=== PATIENT | female | born 1980 | race Caucasian/White ===

== ENCOUNTER 2021-09-06 20:50 | Day surgery (SDC) | payer OTHER ==
[2021-09-06 21:02] VITALS: BMI 28.6
[2021-09-06] MEDS ORDERED: ONDANSETRON 4 MG/2 ML VIAL IVPB ONE (21:17)
[2021-09-06] MEDS ORDERED: LACTATED RINGERS SOLUTION 1000 ML INFUS.BAG IV ONE (21:17)
[2021-09-06] MEDS ORDERED: FAMOTIDINE 20 MG/50 ML IVPB 20 MG/50 ML MG IVPB ONE ×2 (21:18→21:38)
[2021-09-06] MEDS ORDERED: ACETAMINOPHEN 1000 MG/100 ML BAG IVPB ONE (21:24)
[2021-09-06] MEDS ORDERED: ACETAMINOPHEN INJECTION 100 ML IVPB ONE (21:28)
[2021-09-06] MEDS ORDERED: ONDANSETRON 4 MG/2 ML VIAL ONE (21:28)
[2021-09-06 21:45] LABS: BASO % 0.5 % (0-2.0); EOS % 0.4 % (0-4.5); HEMATOCRIT 36.6 % (32.4-45.2); HEMOGLOBIN 12.2 GM/dL (10.7-15.3); LYMPH % 9.8 % (8-40); MCH 27.5 pg (25.7-33.7); MCHC 33.4 g/dl (32.0-36.0); MEAN CELL VOLUME 82.1 fl (80-96); MEAN PLT VOLUME 8.7 fl (7.5-11.1); MONO % 6.2 % (3.8-10.2); NEUT % 83.1 % (42.8-82.8); PLATELET COUNT 230 10^3/uL (134-434); RBC 4.45 M/mm3 (3.60-5.2); RDW 16.4 % (11.6-15.6); WHITE BLOOD COUNT 13.5 K/mm3 (4.0-10.0)
[2021-09-06 21:51] LABS: INR 1.11 (0.83-1.09); PROTHROMBIN TIME (PATIENT) 12.8 SEC (9.7-13.0)
[2021-09-06 22:08] LABS: CHLORIDE 107 mmol/L (98-107); SODIUM 141 mmol/L (136-145)
[2021-09-06 22:11] LABS: CALCIUM 9.1 mg/dL (8.5-10.1)
[2021-09-06 22:12] LABS: ALBUMIN 3.8 g/dl (3.4-5.0); ANION GAP 8 MMOL/L (8-16); BLOOD UREA NITROGEN 7.2 mg/dL (7-18); CO2 25 mmol/L (21-32); GLUCOSE,RANDOM 107 mg/dL (74-106)
[2021-09-06 22:15] LABS: CREATININE 0.8 mg/dL (0.55-1.3); SGOT/AST 23 U/L (15-37); SGPT/ALT 20 U/L (13-61)
[2021-09-06 22:17] LABS: BILIRUBIN,TOTAL 0.4 mg/dL (0.2-1); TOT PROT 7.3 g/dl (6.4-8.2)
[2021-09-06 22:18] LABS: ALK PHOS 79 U/L (45-117)
[2021-09-06] MEDS ORDERED: KETOROLAC TROMETHAMINE 15 MG/ML VIAL IVPUSH ONE (22:56)
[2021-09-06] MEDS ORDERED: KETOROLAC TROMETHAMINE 30 MG/1 ML VIAL ONE (23:07)
[2021-09-06] MEDS ORDERED: AMPICILLIN NA/SULBACTAM NA 1.5 GM in SODIUM CHLORIDE 100 ML IVPB ONE (23:26)
[2021-09-06 23:49] LABS: EPI CELLS 28 /uL (0-25.1); HYALINE CASTS 2 /uL (0-3.1); URINE APPEARANCE CLEAR; URINE BACTERIA 17 /uL (0-1359); URINE BILIRUBIN NEGATIVE (NEGATIVE); URINE COLOR YELLOW; URINE GLUCOSE (UA) NEGATIVE (NEGATIVE); URINE KETONE TRACE (NEGATIVE); URINE LEUK ESTERASE TRACE (NEGATIVE); URINE NITRITE NEGATIVE (NEGATIVE); URINE PROTEIN TRACE (NEGATIVE); URINE RBC 69 /uL (0-23.9); URINE UROBILINOGEN 0.2 mg/dL (0.2-1.0); URINE WBC 59 /uL (0-25.8)
[2021-09-07] MEDS ORDERED: TAMSULOSIN HCL 0.4 MG CAP PO ONE (00:34)
[2021-09-07] MEDS ORDERED: TAMSULOSIN HCL 0.4 MG CAP ONE (00:44)
[2021-09-07] MEDS ORDERED: SODIUM CHLORIDE 1,000 ML IV SCH ×2 (01:30→08:46)
[2021-09-07] MEDS ORDERED: ACETAMINOPHEN 1000 MG/100 ML BAG IVPB PRN ×2 (03:30→08:46)
[2021-09-07] MEDS ORDERED: KETOROLAC TROMETHAMINE 15 MG/ML VIAL IVPB PRN (05:00)
[2021-09-07] MEDS ORDERED: ACETAMINOPHEN INJECTION 100 ML IVPB ONE (06:14)
[2021-09-07] MEDS ORDERED: PROPOFOL 20 ML ONE ×2 (08:16→08:17)
[2021-09-07] MEDS ORDERED: MIDAZOLAM HCL 2 MG/2 ML SINGLE DOSE VIAL ONE ×2 (08:17→08:23)
[2021-09-07] MEDS ORDERED: ONDANSETRON 4 MG/2 ML VIAL IVPUSH PRN (09:09)
[2021-09-07] MEDS ORDERED: CEFTRIAXONE 1 GM in DEXTROSE 5%-WATER - 50 ML IVPB SCH (10:00)
[2021-09-07] MEDS ORDERED: cefTRIAXone SODIUM 1 GM VIAL ONE (11:14)
[2021-09-07] MEDS ORDERED: DEXTROSE 5%-WATER - 50 ML IVPB ONE (11:14)
[2021-09-07] MEDS: LACTATED RINGERS SOLUTION 1,000 ML IV SCH (11:58)
[2021-09-07] MEDS: CEFTRIAXONE 1 GM in DEXTROSE 5%-WATER - 50 ML IVPB SCH (11:59)
[2021-09-07 12:43] LABS: BASO % 0.8 % (0-2.0); EOS % 0.1 % (0-4.5); HEMATOCRIT 38.8 % (32.4-45.2); HEMOGLOBIN 12.5 GM/dL (10.7-15.3); MCH 26.9 pg (25.7-33.7); MCHC 32.2 g/dl (32.0-36.0); MEAN CELL VOLUME 83.6 fl (80-96); MEAN PLT VOLUME 9.4 fl (7.5-11.1); MONO % 1.4 % (3.8-10.2); NEUT % 88.7 % (42.8-82.8); PLATELET COUNT 250 10^3/uL (134-434); RBC 4.63 M/mm3 (3.60-5.2); RDW 16.9 % (11.6-15.6); WHITE BLOOD COUNT 12.5 K/mm3 (4.0-10.0)
[2021-09-07 13:04] LABS: BLOOD UREA NITROGEN 7.6 mg/dL (7-18); CALCIUM 8.4 mg/dL (8.5-10.1)
[2021-09-07 13:05] LABS: ALBUMIN 3.3 g/dl (3.4-5.0)
[2021-09-07 13:08] LABS: CREATININE 0.7 mg/dL (0.55-1.3)
[2021-09-07 13:09] LABS: BILIRUBIN,TOTAL 0.4 mg/dL (0.2-1); TOT PROT 6.8 g/dl (6.4-8.2)
[2021-09-07 13:47] LABS: ERYTHROCYTE SEDIMENTATION RATE 12 mm/hr (0-20)
[2021-09-07] MEDS: KETOROLAC TROMETHAMINE 15 MG/ML VIAL IVPB PRN (20:07)
[2021-09-08] MEDS: KETOROLAC TROMETHAMINE 15 MG/ML VIAL IVPB PRN (04:43)
[2021-09-08] MEDS ORDERED: POLYETHYLENE GLYCOL (HEALTHYLAX) 3350 17 GM PACKET PO ONE (06:32)
[2021-09-08] MEDS ORDERED: TAMSULOSIN HCL 0.4 MG CAP PO SCH ×2 (08:30)
[2021-09-08 09:08] LABS: BASO % 0.5 % (0-2.0); EOS % 0.1 % (0-4.5); HEMATOCRIT 33.4 % (32.4-45.2); HEMOGLOBIN 11.2 GM/dL (10.7-15.3); LYMPH % 26.7 % (8-40); MCH 27.7 pg (25.7-33.7); MCHC 33.4 g/dl (32.0-36.0); MEAN CELL VOLUME 82.8 fl (80-96); MONO % 7.7 % (3.8-10.2); PLATELET COUNT 205 10^3/uL (134-434); RBC 4.03 M/mm3 (3.60-5.2); RDW 16.5 % (11.6-15.6); WHITE BLOOD COUNT 10.9 K/mm3 (4.0-10.0)
[2021-09-08] MEDS ORDERED: cefTRIAXone SODIUM 1 GM VIAL ONE (09:29)
[2021-09-08] MEDS ORDERED: DEXTROSE 5%-WATER - 50 ML IVPB ONE (09:29)
[2021-09-08] MEDS: CEFTRIAXONE 1 GM in DEXTROSE 5%-WATER - 50 ML IVPB SCH (09:32)
[2021-09-08 09:33] LABS: BLOOD UREA NITROGEN 6.1 mg/dL (7-18); CALCIUM 8.4 mg/dL (8.5-10.1)
[2021-09-08 09:36] LABS: CREATININE 0.6 mg/dL (0.55-1.3)
[2021-09-08] MEDS: LACTATED RINGERS SOLUTION 1,000 ML IV SCH (09:37)
[2021-09-08 09:38] LABS: BILIRUBIN,TOTAL 0.4 mg/dL (0.2-1); TOT PROT 6.1 g/dl (6.4-8.2)
[2021-09-08] MEDS ORDERED: MINERAL OIL ENEMA 133 ML ENEMA RC ONE (10:48)
[2021-09-08] MEDS ORDERED: ACETAMINOPHEN 500 MG TABLET (FP) PO ONE (12:53)
[2021-09-08 14:23] VITALS: BP 132/78; PULSE 79; TEMP 98.3
== END 2021-09-08 14:21 | disposition home or self-care (01) ==
LOC: JER 20:50 → JASUSAT 09-07 00:29 → UNDOADMIN 09-07 00:29 → JERBED 09-07 00:29 → J8W 09-07 09:54 → JASUSAT 09-08 14:21
PROC: 0T9680Z Drainage of Right Ureter with Drainage Device, Via Natural or Artificial Opening Endoscopic (ICD-10-PCS; principal; 2021-09-07 07:00)
PROC: 0T768DZ Dilation of Right Ureter with Intraluminal Device, Via Natural or Artificial Opening Endoscopic (ICD-10-PCS; 2021-09-07 07:00)
DX: N20.1 Calculus of ureter (principal)
CPT/HCPCS: 36415; 74176-TC; 76000-TC-FY; 80053; 81003; 84702; 85025; 85610; 85651; 86140; 87040; 87086; 93005; 93010; 94760; 99285-25; C9803-CS; U0003; U0005

== ENCOUNTER 2021-09-16 04:20 | Day surgery (SDC) | payer OTHER ==
[2021-09-15 17:45] VITALS: BMI 29.3
[2021-09-16] MEDS ORDERED: PROMETHAZINE HCL 25 MG/1 ML VIAL IVPUSH PRN (07:39)
[2021-09-16] MEDS ORDERED: ACETAMINOPHEN 500 MG TABLET (FP) PO PRN (07:39)
[2021-09-16] MEDS ORDERED: oxyCODONE HCL 5 MG TABLET PO PRN (07:39)
[2021-09-16] MEDS ORDERED: ONDANSETRON 4 MG/2 ML VIAL IVPUSH PRN (07:39)
[2021-09-16] MEDS ORDERED: LACTATED RINGERS SOLUTION 1,000 ML IV SCH (07:45)
[2021-09-16] MEDS ORDERED: MIDAZOLAM HCL 2 MG/2 ML SINGLE DOSE VIAL ONE ×3 (12:58)
[2021-09-16] MEDS ORDERED: GLYCOPYRROLATE 0.2 MG/1 ML VIAL ONE (13:22)
[2021-09-16] MEDS ORDERED: PROPOFOL 20 ML ONE (13:22)
[2021-09-16] MEDS ORDERED: LIDOCAINE HCL/PF 2% SDV 5ML VIAL ONE (13:23)
[2021-09-16] MEDS ORDERED: ceFAZolin SODIUM 1 GM VIAL IVPB ONE (13:28)
[2021-09-16 16:01] VITALS: BP 121/78; PULSE 78; TEMP 97.6
== END 2021-09-16 16:01 | disposition home or self-care (01) ==
LOC: JASU-SURG 04:20
PROVIDERS: ATTEND Urology
PROC: 0TF6XZZ Fragmentation in Right Ureter, External Approach (ICD-10-PCS; principal; 2021-09-16 12:15)
DX: N20.1 Calculus of ureter (principal)
CPT/HCPCS: 81025

== ENCOUNTER 2021-12-16 04:32 | Day surgery (SDC) | payer OTHER ==
[2021-12-11 12:52] VITALS: BMI 29.3
[2021-12-16] MEDS ORDERED: LIDOCAINE HCL 1%, 10 MG/ML (20ML VIAL) ONE ×2 (09:13→11:06)
[2021-12-16] MEDS ORDERED: MIDAZOLAM HCL 2 MG/2 ML SINGLE DOSE VIAL ONE (09:14)
[2021-12-16] MEDS ORDERED: PROPOFOL 20 ML ONE (09:14)
[2021-12-16] MEDS ORDERED: ceFAZolin SODIUM 1 GM VIAL IVPB ONE (10:15)
[2021-12-16] MEDS ORDERED: ceFAZolin SODIUM 1 GM VIAL ONE (10:15)
[2021-12-16] MEDS ORDERED: KETOROLAC TROMETHAMINE 30 MG/1 ML VIAL ONE (10:17)
[2021-12-16] MEDS ORDERED: DEXAMETHASONE SOD PHOSPHATE 4 MG/1 ML VIAL ONE (10:17)
[2021-12-16] MEDS ORDERED: LIDOCAINE HCL 1%, 10 MG/ML (20ML VIAL) INF ONE ×3 (10:20)
[2021-12-16] MEDS ORDERED: GENTAMICIN 80MG PREMIX BAG IVPB ONE (11:17)
[2021-12-16] MEDS ORDERED: ONDANSETRON 4 MG/2 ML VIAL IVPUSH PRN (11:38)
[2021-12-16] MEDS ORDERED: PROMETHAZINE HCL 25 MG/1 ML VIAL IVPUSH PRN (11:38)
[2021-12-16] MEDS ORDERED: oxyCODONE HCL 5 MG TABLET PO PRN ×2 (11:38)
[2021-12-16] MEDS ORDERED: FENTANYL CITRATE/PF 50 MCG/ML VIAL ONE ×2 (11:43→12:38)
[2021-12-16] MEDS ORDERED: LACTATED RINGERS SOLUTION 1,000 ML IV SCH (11:45)
[2021-12-16 14:20] VITALS: TEMP 97.2
[2021-12-16 18:25] VITALS: BP 110/70; PULSE 58
== END 2021-12-16 14:45 | disposition home or self-care (01) ==
LOC: JASU-SURG 04:32
PROVIDERS: ATTEND Urology
PROC: 01HY0MZ Insertion of Neurostimulator Lead into Peripheral Nerve, Open Approach (ICD-10-PCS; 2021-12-16)
PROC: 0JH70DZ Insertion of Multiple Array Stimulator Generator into Back Subcutaneous Tissue and Fascia, Open Approach (ICD-10-PCS; principal; 2021-12-16 10:30)
DX: N32.81 Overactive bladder (principal)
CPT/HCPCS: 64581; 64590; 95972; C1778; L8679; 76000-TC-FY; 81025; 94760

== ENCOUNTER 2024-01-10 04:49 | Day surgery (SDC) | payer OTHER ==
[2024-01-07 16:09] VITALS: BMI 36.0
[2024-01-10] MEDS: LIDOCAINE HCL 1%, 10 MG/ML (20ML VIAL) INF ONE
[2024-01-10] MEDS ORDERED: PROPOFOL 20 ML ONE ×2 (07:20→09:30)
[2024-01-10] MEDS ORDERED: MIDAZOLAM HCL 2 MG/2 ML SINGLE DOSE VIAL ONE (07:20)
[2024-01-10] MEDS ORDERED: LIDOCAINE HCL/PF 2% SDV 5ML VIAL ONE (07:20)
[2024-01-10] MEDS ORDERED: LIDOCAINE 1%/EPI 1:100000 (20 ML MULTI DOSE VIAL) ONE (07:51)
[2024-01-10] MEDS ORDERED: LIDOCAINE HCL 1%, 10 MG/ML (20ML VIAL) ONE (07:51)
[2024-01-10] MEDS ORDERED: BUPIVACAINE HCL/PF 0.5% (5MG/ML) 10 ML VIAL ONE (07:58)
[2024-01-10] MEDS ORDERED: SUCCINYLCHOLINE CHLORIDE 200 MG/10 ML SYRINGE ONE (08:05)
[2024-01-10] MEDS: ceFAZolin SODIUM 1 GM VIAL IVPB ONE (08:12)
[2024-01-10] MEDS ORDERED: ceFAZolin SODIUM 1 GM VIAL ONE (08:18)
[2024-01-10] MEDS ORDERED: DEXAMETHASONE SOD PHOSPHATE 4 MG/1 ML VIAL ONE (08:18)
[2024-01-10] MEDS ORDERED: ROCURONIUM BROMIDE 50 MG/5 ML SYRINGE ONE (08:21)
[2024-01-10] MEDS: LIDOCAINE 1%/EPI 1:100000 (20 ML MULTI DOSE VIAL) IJ ONE ×2 (08:27)
[2024-01-10] MEDS: BUPIVACAINE HCL/PF 0.5% (5MG/ML) 10 ML VIAL IJ ONE ×2 (08:27)
[2024-01-10] MEDS ORDERED: ONDANSETRON 4 MG/2 ML VIAL IVPUSH PRN (09:00)
[2024-01-10] MEDS ORDERED: LACTATED RINGERS SOLUTION 1,000 ML IV SCH (09:00)
[2024-01-10] MEDS ORDERED: PROMETHAZINE HCL 25 MG/1 ML VIAL IVPB PRN (09:00)
[2024-01-10] MEDS ORDERED: oxyCODONE HCL 5 MG TABLET PO PRN ×2 (09:00)
[2024-01-10] MEDS ORDERED: ACETAMINOPHEN INJECTION 100 ML IVPB ONE (10:04)
[2024-01-10] MEDS: ACETAMINOPHEN 1000 MG/100 ML BAG IVPB ONE (10:06)
[2024-01-10] MEDS ORDERED: SODIUM CHLORIDE 0.9% P/F 10 ML VIAL IJ ONE ×2 (10:36)
[2024-01-10 12:57] VITALS: BP 134/79; PULSE 72; RESP 20; TEMP 97.8
== END 2024-01-10 13:06 | disposition home or self-care (01) ==
LOC: JASU-SURG 04:49
PROVIDERS: ATTEND Urology
PROC: 01HY0MZ Insertion of Neurostimulator Lead into Peripheral Nerve, Open Approach (ICD-10-PCS; 2024-01-10)
PROC: 0JPT0MZ Removal of Stimulator Generator from Trunk Subcutaneous Tissue and Fascia, Open Approach (ICD-10-PCS; 2024-01-10)
PROC: 0JH70BZ Insertion of Single Array Stimulator Generator into Back Subcutaneous Tissue and Fascia, Open Approach (ICD-10-PCS; 2024-01-10)
PROC: 01PY0MZ Removal of Neurostimulator Lead from Peripheral Nerve, Open Approach (ICD-10-PCS; principal; 2024-01-10 08:00)
DX: T85.121A Displacement of implanted electronic neurostimulator of peripheral nerve electrode (lead), initial encounter (principal); N32.81 Overactive bladder
CPT/HCPCS: 64581; 64590; C1778; L8679; 76000-TC-FY; 81025; 94760; C1767; J0131